=== PATIENT | female | born 1965 | race Caucasian/White ===

== ENCOUNTER 2020-10-13 11:40 | Outpatient (REF) | payer OTHER, SELFPAY ==
[2020-10-13 12:45] LABS: MANUAL DIFF FLAG NO
[2020-10-13 12:52] LABS: Basophils Percent Auto 0.2 % (0-2); Eosinophils Absolute Auto 0.2 X10*3/uL (0.0-0.4); Eosinophils Percent Auto 2.1 % (0-4); Hematocrit 40.1 % (37-47); Hemoglobin 12.8 g/dl (12.0-16.0); Imm Gran Abs Auto 0.04 X10*3/uL (0.00-0.03); Imm Gran Pct Auto 0.4 % (0.0-0.4); Lymphocytes Absolute Auto 3.7 X10*3/uL (1.2-4.9); Lymphocytes Percent Auto 36.8 % (20-40); Mean Corpuscular HGB Conc 31.9 g/dl (31.0-35.0); Mean Corpuscular Hemoglobin 29.1 pg (27.0-33.0); Mean Corpuscular Volume 91.1 fL (80-98); Monocytes Absolute Auto 0.5 X10*3/uL (0.1-1.2); Neutrophils Absolute Auto 5.5 X10*3/uL (2.0-8.3); Neutrophils Percent Auto 55.5 % (45-73); Platelet Count 276 X10*3/uL (160-400); Red Cell Distribution Width 13.8 % (11.0-16.0); White Blood Count 9.9 X10*3/uL (4.8-10.8)
[2020-10-13 13:02] LABS: Estimated Average Glucose 146 mg/dL; Hemoglobin A1c % 6.7 %
[2020-10-13 13:11] LABS: Creatinine Urine 110.89 mg/dL; Microalbum/Creatinine Ratio Ur 16.2 ug/mg cr
[2020-10-13 13:25] LABS: Alanine Aminotransferase 6 U/L (0-31); Albumin Level 4.5 g/dL (3.5-5.0); Alkaline Phosphatase 78 U/L (39-117); Anion Gap 12 (12-20); Aspartate Amino Transferase 15 U/L (5-31); Bilirubin Total 0.3 mg/dL (0.0-1.0); Blood Urea Nitrogen 15 mg/dL (9-16); Calcium 9.7 mg/dL (8.4-10.2); Carbon Dioxide 30 mmol/L (22-29); Chloride 105 mmol/L (96-108); Cholesterol 148 mg/dL; Estimated Glomerular Filt Rate 57; Glucose Fasting 76 mg/dL (60-99); HDL Cholesterol 45 mg/dL; LDL Cholesterol Calculated 77 mg/dl; Potassium 4.4 mmol/L (3.3-5.1); Sodium 143 mmol/L (135-145); Total Protein 7.1 g/dL (6.5-8.0); Triglycerides 130 mg/dL
== END 2020-10-13 11:41 | disposition home or self-care (01) ==
LOC: HO.LAB 11:40
PROVIDERS: PCP Internal Medicine; Visit Provider Internal Medicine
DX: E11.9 Type 2 diabetes mellitus without complications (principal); E03.9 Hypothyroidism, unspecified
CPT/HCPCS: 36415; 80053; 80061; 82043; 83036; 84443; 85025

== ENCOUNTER 2020-11-06 13:48 | Outpatient (REF) | payer OTHER, SELFPAY ==
--- NOTE | ~2020-11-06 | MR_ITS ---
EXAMINATION: MR LUMBAR SPINE WITHOUT CONTRAST CLINICAL INFORMATION: Bilateral leg pain and weakness. Right leg numbness. COMPARISON: Lumbar spine MRI dated 09/21/2013. TECHNIQUE: MRI of the lumbar spine was obtained using routine sequences without contrast. FINDINGS: VERTEBRAL BODIES AND PARASPINAL STRUCTURES: The lumbar lordosis is maintained. Minimal grade 1 retrolisthesis of L5 on S1, unchanged. No acute fracture. No loss of vertebral body height. Loss of intervertebral disc height at L5-S1 with mild degenerative endplate changes, progressed when compared to the prior examination. Additional disc desiccation throughout the lumbar spine, not significantly changed. Redemonstration of a cystic structure within L3, slightly increased in size when compared to the prior MRI. No associated marrow edema. No new abnormal marrow signal. No evidence of acute osseous injury. The visualized paraspinal soft tissues are unremarkable. CONUS MEDULLARIS AND CAUDA EQUINA: Normal, terminating at the level of the L1-L2 intervertebral disc. SPINAL LEVELS: T12-L1: Small posterior central disc protrusion, new when compared to the prior examination. This partially effaces the ventral thecal sac. No significant neural foraminal stenosis. L1-L2: Minimal right paracentral disc bulge which is new when compared to the prior examination. Bilateral facet arthropathy and thickening of ligamentum flavum. No significant central canal or neural foraminal stenosis. L2-L3: No significant disc bulge. Bilateral facet arthropathy and thickening of ligamentum flavum without central canal or neural foraminal stenosis. L3-L4: Diffuse broad-based disc bulge, slightly more prominent when compared to the prior examination. Bilateral facet arthropathy and thickening of ligamentum flavum causing mild central canal stenosis which has slightly increased when compared to the prior examination and encroaches upon the traversing bilateral L4 nerve roots within the lateral recesses. Mild bilateral neural foraminal stenosis is slightly progressed. L4-L5: Broad-based disc bulge with a shallow posterior central disc protrusion as well as bilateral facet arthropathy and thickening of ligamentum flavum, unchanged. This causes minimal central canal as well as mild bilateral neural foraminal stenosis which is unchanged. L5-S1: Broad-based disc bulge with prominent bilateral facet arthropathy and thickening of ligamentum flavum causing [id number] central canal stenosis and encroaching upon the traversing bilateral S1 nerve roots. Moderate left and mild to moderate right neural foraminal stenosis. Findings are similar when compared to the prior MRI. MR/MR lumbar spine wo con IMPRESSION: 1. Broad-based disc bulge at L3-L4 with bilateral facet arthropathy and thickening of ligamentum flavum causing mild central canal stenosis which encroaches upon the traversing bilateral L4 nerve roots. Mild bilateral neural foraminal stenosis. Overall, findings have slightly progressed when compared to the prior examination. 2. Minimal right paracentral disc bulge at L1-L2 with bilateral facet arthropathy and thickening of ligamentum flavum, new/progressed when compared to the prior examination. No significant central canal or neural foraminal stenosis. 3. Small posterior central disc protrusion at T12-L1 which partially effaces the ventral thecal sac without neural foraminal stenosis. Findings are new when compared to the prior examination. 4. Disc bulges and facet arthropathy with central canal or neural foraminal stenosis at L4-L5 and L5-S1, unchanged when compared to the prior MRI.
== END 2020-11-06 13:49 | disposition home or self-care (01) ==
LOC: HO.MRI 13:48
PROVIDERS: PCP Internal Medicine; Visit Provider Psychiatry & Neurology Neurology
DX: M54.16 Radiculopathy, lumbar region (principal)
CPT/HCPCS: 72148